=== PATIENT | male | born 1960 | race Hispanic/Latino ===

== ENCOUNTER 2023-05-11 08:53 | Outpatient (CLI) | payer OTHER, SELFPAY ==
--- NOTE | ~2023-05-11 | CT_ITS ---
EXAMINATION: CT lumbar spine wo con DATE: 05/11/2023 09:11 INDICATION: Lumbar radicular pain. TECHNIQUE: Computed tomography (CT) of the lumbar spine was performed without intravenous contrast. A utomated exposure control and iterative reconstruction technique were employed. The dose-length produ ct was 1389.31 mGy-cm. COMPARISON: Lumbar spine MRI 12/17/2017 FINDINGS: There is 3 mm anterolisthesis of L4 on L5. Vertebral body heights are normal. There is mild ly decreased disc height at L2-L3, L3-L4, and L4-L5 and severely decreased disc height at L5-S1. Ther e is an electrode in left S4 neural foramen. The following disc levels are specifically discussed: L1-L2: The disc does not extend beyond the endplate margin. There is severe bilateral facet joint ost eoarthritis. There is no neural foraminal stenosis. There is no central canal stenosis. L2-L3: The disc is bulging. There is moderate right and severe left facet joint osteoarthritis. There is mild right and moderate left neural foraminal stenosis. There is mild central canal stenosis. L3-L4: The disc is bulging. There is severe bilateral facet joint osteoarthritis. There is moderate b ilateral neural foraminal stenosis. There is mild central canal stenosis. L4-L5: The disc is bulging. There is severe bilateral facet joint osteoarthritis. There is moderate b ilateral neural foraminal stenosis. There is moderate central canal stenosis. L5-S1: The disc is bulging. There is severe bilateral facet joint osteoarthritis. There is moderate b ilateral neural foraminal stenosis. There is mild central canal stenosis. IMPRESSION: 1. Severe lumbar spondylosis, stable from 12/17/2017. Reviewed, dictated and finalized at location A.
== END 2023-05-11 08:54 | disposition home or self-care (01) ==
LOC: ANHIMG 08:55
PROVIDERS: PCP Family Medicine; Visit Provider Nurse Practitioner Family
DX: M54.16 Radiculopathy, lumbar region (principal); M43.06 Spondylolysis, lumbar region
CPT/HCPCS: 72131

== ENCOUNTER 2023-06-07 00:20 | Day surgery (SDC) | payer OTHER, SELFPAY ==
[2023-05-27 12:41] VITALS: BMI 36.8
[2023-06-07 06:48] VITALS: BP 138/79; PULSE 60; RESP 18; TEMP 36.3; O2SAT 96
[2023-06-07] MEDS: LACTATED RINGERS 1,000 ML 150 ML IV CONT (06:59)
--- NOTE | 2023-06-07 07:48 | WPDHPUPDATE1 ---
History and Physical Update Update Date/Time: 06/07/23 07:48 History and Physical has been reviewed, including an updated exam of the patient. There are NO changes in the patient's condition. Risks, benefits, and alternatives have been discussed and questions answered. Patient agrees to proceed with procedure.
[2023-06-07] MEDS: BENZOCAINE (*SP) 60 ML SPRAY CAN (HURRICAINE) 1 SPRAY MUCOUS MEM (07:55)
--- NOTE | 2023-06-07 07:55 | WPDANESEPPF ---
Anes - Initial Pre Proc Eval Procedure: Operation Date: 06/07/23 08:00 Proposed Procedures p Esophagogastroduodenoscopy & Screening Colonoscopy - Nick Chang MD s Possible [facility] Hemorrhoid Treatment - Nick Chang MD Date/Time: 06/07/23 07:55 Surgeon: Nick Chang MD Pre Op Diagnosis: Right Upper Quad Pain,Epigastric pain, Patient Data Age: 62 Gender: M Height: 1.8 m Weight: 118.3 kg Last Vital Signs Temp 97.3 F L 06/07/23 06:48 Pulse 60 06/07/23 06:48 Resp 18 06/07/23 06:48 BP 138/79 06/07/23 06:48 Pulse Ox 96 06/07/23 06:48 O2 Del Method Room Air 06/07/23 06:48 Allergies Allergy/AdvReac Type Severity Reaction Status Date / Time No Known Allergies Allergy Verified 06/07/23 06:38 Home Medications Medication Instructions Recorded Confirmed Type aspirin 81 mg tablet,delayed 81 mg PO DAILY 12/09/19 05/27/23 History release (Adult Low Dose Aspirin) cetirizine 10 mg tablet (Zyrtec) 10 mg PO DAILY #90 tabs 11/05/22 05/27/23 Rx ergocalciferol (vitamin D2) 1,250 1,250 mcg PO WEEKLY #12 caps 11/05/22 05/27/23 Rx mcg (50,000 unit) capsule lisinopril 10 mg tablet 10 mg PO DAILY #90 tabs 11/05/22 05/27/23 Rx metoprolol tartrate 25 mg tablet 25 mg PO BID #180 tabs 11/05/22 06/07/23 Rx montelukast 10 mg tablet 10 mg PO DAILY #90 tabs 11/05/22 05/27/23 Rx (Singulair) rosuvastatin 20 mg tablet 20 mg PO DAILY #90 tabs 11/05/22 05/27/23 Rx sildenafil (pulm.hypertension) 20 40 mg PO .COMPLEX #180 tabs 11/05/22 05/27/23 Rx mg tablet tamsulosin 0.4 mg capsule 0.4 mg PO DAILY #90 caps 11/05/22 05/27/23 Rx diclofenac sodium 1 % topical gel 4 g topical QID #100 grams 01/03/23 05/27/23 Rx citalopram 20 mg tablet 20 mg PO DAILY 03/17/23 05/27/23 History tramadol 50 mg tablet 50 mg PO Q6H PRN pain #30 tabs 04/05/23 05/27/23 Rx terbinafine HCl 250 mg tablet 250 mg PO DAILY #30 tabs 04/08/23 05/27/23 Rx omeprazole 20 mg capsule,delayed 20 mg PO BID #60 caps 05/18/23 05/27/23 Rx release sucralfate 1 gram tablet (Carafate) 1 g PO BID 05/18/23 05/27/23 History Patient hx anesthesia problems: none Family hx anesthesia problems: none Results Review: All pre-operative results and documents have been reviewed as part of the pre-operative evaluation. 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 Degenerative arthritis of knee Encounter for screening colonoscopy Epigastric abdominal pain Erectile dysfunction Essential hypertension Fecal incontinence Hyperlipidemia, unspecified Internal hemorrhoid LUQ pain Obesity (BMI 30-39.9) Prediabetes Surgical History Surgical History S/P implantation of urinary electronic stimulator device Family History Family History Other Family history of Alzheimer's disease Family history of alcoholism Family history of arthritis Family history of kidney disease Family history of malignant neoplasm of breast in first degree relative Social History Social History Smoking status: Never smoker Second hand tobacco smoke exposure: No Alcohol intake: current Alcohol use details: socially Substance use: never Substance use type: does not use Lack of Transportation: No Lack of Food: Never True Current Housing: I Have Housing Concerned About Future Housing: No Difficulty Paying Gas/Electric Bills: No Difficulty Paying for Meds: No Currently Unemployed: No Education: Associate Degree Difficulty w/ Childcare or Family Care: No Living arrangements: with family Occupation/Education: retired Gender identity (if verbalized by the pat
--- NOTE | 2023-06-07 08:15 | SUR.OPER ---
EGD START 075, END 075 COLONOSCOPY START 802, END 811 IRC START 811, END 812
[2023-06-07 08:17] VITALS: BP 94/61; PULSE 59; RESP 21; O2SAT 94
--- NOTE | 2023-06-07 08:17 | W.PM.PROC2 ---
Procedure Note - Detailed Date of Procedure 06/07/23 Pre-op Diagnosis hemorrhoids Post-op Diagnosis Same Procedure Performed IRC of internal hemorrhoids Surgeon Nick Chang MD Anesthesia MAC (also had colonoscopy) Findings grade ii internal hemorrhoids Description of Procedure used anoscopy, found grade II internal hemorrhoids, no fissure, no lesions. Then advanced IRC probe and hemorrhoids treated for 1.5 seconds x6
[2023-06-07 08:27] VITALS: BP 107/68; PULSE 61; RESP 15; O2SAT 91
[2023-06-07 08:37] VITALS: BP 104/63; PULSE 57; RESP 17; O2SAT 92
== END 2023-06-07 08:42 | disposition home or self-care (01) ==
PROVIDERS: PCP Family Medicine; Visit Provider Internal Medicine Gastroenterology
PROC: 0DJ08ZZ Inspection of Upper Intestinal Tract, Via Natural or Artificial Opening Endoscopic (ICD-10-PCS; CPT 43235; principal; 2023-06-07 08:00)
PROC: (CPT 46930; 2023-06-07 08:00)
DX: Z12.11 Encounter for screening for malignant neoplasm of colon (principal); K64.8 Other hemorrhoids; K57.30 Diverticulosis of large intestine without perforation or abscess without bleeding; K29.70 Gastritis, unspecified, without bleeding; I25.10 Atherosclerotic heart disease of native coronary artery without angina pectoris; I10 Essential (primary) hypertension; E78.5 Hyperlipidemia, unspecified; F41.9 Anxiety disorder, unspecified; E66.9 Obesity, unspecified; Z68.36 Body mass index [BMI] 36.0-36.9, adult; Z79.82 Long term (current) use of aspirin
CPT/HCPCS: 46930; 45378; 43239; 88305; J2704; J7120

== ENCOUNTER 2024-12-21 06:48 | Outpatient (CLI) | payer MEDICARE, OTHER, SELFPAY ==
--- NOTE | 2024-12-14 08:12 | PC.NURSE ---
Pre Radiology instructions Report to the outpatient onesimo taylor on date 12/21/24 at time _7 am for procedure Time: _9 am___ YOU MAY BE MONITORED AT HOSPITAL FOR UP TO 4 HOURS AFTER YOUR PROCEDURE. A visitor will be allowed to accompany the patient into the hospital. You and your visitor will be asked to self-screen and do not enter if you have any COVID symptoms. A mask is OPTIONAL within the hospital. Patients are to have no food or drink 6 hours prior to procedure time Driving will be restricted after the procedure, you must have a person to drive you home. Labs will be drawn in preop area and once reviewed, you will be taken to radiology area for procedure. When the procedure is completed, you will be taken to outpatient where you will be monitored for several hours. You may have one visitor in this area. Other than holding anti-coagulants, patient may take other medication(s) as scheduled. Prior to your appointment date patients are instructed to hold anti-coagulants after discussing with ordering provider to stop. If unable to discontinue anti-coagulants please notify radiologist. ? No aspirin or warfarin (Coumadin) for 7 days prior to the procedure. ? No clopidogrel (Plavix), ticagrelor (Brilinta), prasugrel (Effient) or dabigatran (Pradaxa) for 5 days prior to the procedure. ? No rivaroxaban (Xarelto), apixaban (Eliquis), dipyridamole (Aggrenox or Persantine) or cilostazol (Pletal) for 2 days prior to the procedure. Medications to discontinue per physician: __ASPIRIN 7 DAYS Date to take last dose: __12/13/24 Please leave all valuables, including medications, at home the day of procedure. The hospital will not accept responsibility for valuables. Wear comfortable, loose fitting clothing.? Follow any additional instructions given to you from ordering provider. Telephone instructions given to __PATIENT and asked if any additional questions and then verbalized understanding. Patient advised to call scheduling provider office or registration scheduling [phone] if any additional questions.
[2024-12-14 08:27] VITALS: BMI 34.8
[2024-12-21] VITALS (9 sets, daily range): BP systolic 123–153; BP diastolic 80–93; PULSE 60–75; RESP 16–20; TEMP 36.5; O2SAT 97–100
--- NOTE | ~2024-12-21 | XR_ITS ---
EXAMINATION: 1. CT lumbar spine w con 2. XR myelogram spine lumbosacral DATE: 12/21/2024 10:23 INDICATION: Lumbar radiculopathy. TECHNIQUE: The procedure including the risks, benefits, and alternatives was discussed with the patie nt. Risks discussed included spinal headache, bleeding, and infection. The patient understood the ris ks and agreed to proceed. A timeout was performed to verify the patient's name, date of , and procedure to be performed. The skin overlying the L2-L3 level was prepped and draped in usual steri le fashion. Subcutaneous 1% lidocaine was used for local anesthesia. A 22 gauge spinal needle was a dvanced under fluoroscopic guidance. 17 mL Omnipaque 180 was injected into the thecal sac. The needle was removed and the entry site was cleaned and dressed. There were no immediate complications. Fluo roscopy exposure time was 0.4 minutes. The total number of images was 9. Computed tomography (CT) of the lumbar spine was performed without intravenous contrast. Automated exposure control and iterative reconstruction technique were employed. The dose-length product was 1189.56 mGy-cm. COMPARISON: CT lumbar spine 05/11/23, MRI 12/17/17 FINDINGS: LUMBAR MYELOGRAM: There is a needle in the thecal sac at L2-L3. There is a lack of contrast inferior to L4-L5 despite elevation of the patient's head. Further details will be given on the post myelogram CT. POST-MYELOGRAM LUMBAR SPINE CT: There is 3 mm anterolisthesis of L4 on L5. Vertebral body heights are normal. There is mildly decreased disc height at L2-L3, moderately decreased disc height at L3-L4 an d L4-L5, and severely decreased disc height at L5-S1. The conus medullaris is at L1. There is an elec trode in the left S4 neural foramen. The following disc levels are specifically discussed: L1-L2: The disc does not extend beyond the endplate margin. There is severe bilateral facet joint ost eoarthritis. There is no neural foraminal stenosis. There is no central canal stenosis. L2-L3: The disc is bulging. There is moderate right and severe left facet joint osteoarthritis. There is mild bilateral neural foraminal stenosis. There is no central canal stenosis. L3-L4: The disc is bulging. There is severe bilateral facet joint osteoarthritis. There is moderate b ilateral neural foraminal stenosis. There is mild central canal stenosis. L4-L5: The disc is bulging. There is severe bilateral facet joint osteoarthritis. There is hypertroph y of the ligamentum flavum. There is moderate bilateral neural foraminal stenosis. There is severe ce ntral canal stenosis. L5-S1: The disc is bulging. There is severe bilateral facet joint osteoarthritis. There is moderate b ilateral neural foraminal stenosis. There is mild central canal stenosis. IMPRESSION: 1. Severe lumbar spondylosis. Reviewed, dictated and finalized at location A. CATION RECONCILIATION TECHNICIAN IMPRESSION: 1. Severe lumbar spondylosis.
--- OUTSIDE RECORDS SUMMARY | 2024-12-21 06:51 | XMS_ITS | Clinical Summary ---
Author Organization [facility] Address [address] [place] [address] Care Team Providers Care Saw Superintendent Name Role Phone Unavailable Primary Care Provider Unavailabl e Social History Tobacco Use Types Packs/Day Years Used Date Smoking Tobacco: Never Assessed Sex and Gender Information Value Date Recorded Sex Assigned at Not on file Legal Sex Male 10:42 AM [employer] Gender Identity Not on file Sexual Orientation Not on file Plan of Treatment Health Maintenance Due Date Last Done Comments COLORECTAL SCREENING 2004 Colorectal Cancer Screening 2004 FIT-DNA Q 3 years 2004 FIT/FOBT Q 1 year 2004 Flex Sig/CT Colonography Q 5 years 2004 PNEUMOCOCCAL VACCINE 65+ YEA RS (1 of 1 - PCV) 2009 RSV VACCINE (60+ or ) (1 - Risk 60-74 years 1-dose series) 2019 DTAP/TDAP/TD VACCINES (2 - T d or Tdap) 08/08/2020 08/08/2010 INFLUENZA VACCINE (#1) 2024 0, 10/07/2018, 09/11/2017, Additional history exists ZOSTER VACCINE Completed 09/29/2020, 07/26/2020 Insurance [employer] [address] [place] [address]
--- OUTSIDE RECORDS SUMMARY | 2024-12-21 06:53 | XMS_ITS | Referral Summary ---
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 Advanced Medicine 12th [place] [address] [place] [phone] Adrien Roe MD Lumbar radiculopathy (Primary Dx); Chronic lumbar radiculopathy; Degenerative lumbar spinal stenosis 11/16/2024 8:45 AM ON AIR HOST - 11/16/2024 11:59 PM ON AIR HOST Hospital Encounter [facility] [address] [place] [address] Lumbar radiculopathy Discharge Disposition: Discharge to home or self care 11/16/2024 9:40 AM ON AIR HOST Office Visit [facility] Orthopaedic Surgery [address] [facility] Advanced [facility] 12th [place] [address] [place] [address] Adrien Roe MD Lumbar radiculopathy (Primary Dx); Chronic lumbar radiculopathy; Degenerative lumbar spinal stenosis; Lumbar spine pain 11/05/2024 Orders Only [facility] Orthopaedic Surgery [address] [facility] [address] [place] [phone] Kyaw Ames MD Chronic lumbar radiculopathy (Primary Dx); Degenerative lumbar spinal stenosis 11/02/2024 10:39 AM ON AIR HOST - 11/02/2024 11:59 PM ON AIR HOST Hospital Encounter [facility] [address] [place] [address] Chronic lumbar radiculopathy Discharge Disposition: Discharge to home or self care 10/29/2024 Orders Only [facility] Orthopaedic Surgery [address] [place] [address] 4 [address] [place] [address] Kyaw Ames MD Chronic lumbar radiculopathy (Primary Dx) 10/29/2024 9:30 AM ON AIR HOST Diagnostic [facility] Orthopaedic Surgery [address] [place] [address] [address] [place] [phone] Kyaw Ames MD Muscle atrophy of lower extremity; Neuropathy of right lower extremity; Lumbar radiculopathy 09/21/2024 Orders Only [facility] Orthopaedic Surgery [address] [place] [address] 4 [address] [place] [address] Kyaw Ames MD Muscle atrophy of lower extremity; Neuropathy of right lower extremity; Lumbar radiculopathy from Last 3 Months Allergies No known active allergies Medications citalopram (CeleXA) 20 mg tabletIndication s:Anxiety with Depression Take 1 tablet (20 mg total) by mouth daily with breakfast Active aspirin 81 mg tabletIndication s:primary prevention heart stent Take 1 tablet (81 mg total) by mouth every morning Active fluticasone propionate (FLONASE) 50 mcg/actuation nasal sprayIndications :Allergic Rhinitis Administer 1 spray into each nostril nightly Active nitroglycerin (NITROSTAT) 0.[address] 1 tablet (0.4 mg total) under the tongue every 5 (five) minutes as needed for chest pain As needed 25 tablet 11 0 Active lisinopriL (PRINIVIL,ZESTRI L) 5 mg tablet Take 1 tablet (5 mg total) by mouth daily 90 tablet 3 0 Active Additional Information Patient taking differently:5 mg oralEvery morning, Indications: hypertension, Reported on 09/12/2024 cetirizine (ZyrTEC) 10 mg tablet every morning 0 Active ergocalciferol (VITAMIN D) 50,000 unit capsule once a week On Wednesdays 1 Active montelukast (SINGULAIR) 10 mg tabletIndication s:Seasonal Allergic Rhinitis nightly 1 Active multivitamin capsuleIndicatio ns:Vitamin Deficiency Prevention Take 1 capsule by mouth every morning Active solifenacin (VESIcare) 10 mg tabletIndication s:Urge incontinence,Ove ractive bladder Take 1 tablet (10 mg total) by mouth daily 30 tablet 5 2 Active Additional Information Patient not taking.Reported on 10/19/2022 rosuvastatin (CRESTOR) 20 mg tablet TAKE 1 TABLET(20 MG) BY MOUTH EVERY NIGHT 90 tablet 2 Active sildenafiL, pulm.hypertensio n, (REVATIO) 20 mg tablet TAKE 2 TABLETS BY MOUTH 30 MINUTES BEFORE SEXUAL ACTIVITY 2 Active tamsulosin (FLOMAX) 0.4 mg extended release capsuleIndicatio ns:Bladder outlet obstruction TAKE 1 CAPSULE(0.4 MG) BY MOUTH EVERY NIGHT 90 capsule 2 Active trospium XR (SANCTURA XR) 60 mg capsule,extended release 24hrIndications: Bladder outlet obstruction Take 1 capsule (60 mg total) by mouth daily 90 capsule 1 3 Active Myrbetriq 25 mg tablet extended release 24 hrIndications:Ov eractive bladder TAKE 1 TABLET DAILY 30 tablet 11 4 Active gabapentin (NEURONTIN) 300 mg capsule 4 Active gabapentin (NEURONTIN) 100 mg capsule 4 Active terbinafine (LamiSIL) 250 mg tablet 4 Active diazePAM (VALIUM) 5 mg tabletIndication s:anxiety Take one tablet by mouth 30 minutes to 1 hour prior to procedure for anxiety 1 tablet 5 Active Active Problems Problem Noted Date Diagnosed Date Overactive bladder 08/22/2023 Hepatitis C antibody positive in blood 1 Assessment & Plan (06/12/2021 10:35 AM CDT): Proceed with usual pre treatment blood work. 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 Coronary artery disease invo lving picayune coronary artery of picayune heart without angina pectoris 09/21/[address] elevation myocardial infarction (S NELSON) 09/21/2018 Essential hypertension 09/21/2018 Dyslipidemia 09/21/2018 Presence of stent in coronary artery 09/21/2018 Osteoarthritis of cervical spine with myelopathy 06/13/2018 Overview (06/13/2018): Added automatically from request for surgery [id number] Immunizations Name Administration Dates Next Due Influenza, Quadrivalent, Denae l Culture-based MDCK, Preservative Free, Antibiotic Free, Intramuscular 07/26/2020 Influenza, Unspecified 08/25/2019 ZOSTER Recombinant 09/29/2020,07/26/2020 Social History Tobacco Use Types Packs/Day Years Used Date Smoking Tobacco: Never Cigarettes Smokeless Tobacco: Never Tobacco Cessation:Counseling Given: Not Answered Alcohol Use Standard Drinks/Week Comments Yes 0 (1 standard drink = 0.6 oz pur e alcohol) SOCIAL AUDIT-C Answer Date Recorded Q1: How often do you have a drink containing alc ohol? Monthly or less 08/28/2021 Q2: How many drinks containi ng alcohol do you have on a typical day when you are drinking? 1 or 2 08/28/2021 Q3: How often do you have si x or more drinks on one occasion? 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 Not on file Not on file Not on file Last Filed Vital Signs Vital Sign Reading Time Taken Comments Blood Pressure 125/75 11/14/2023 9:54 AM ON AIR HOST Pulse 90 11/14/2023 9:54 AM ON AIR HOST Temperature 36.4 C (97.5 F) 09/08/2021 12:55 PM CDT Respiratory Rate 14 09/08/2021 12:55 PM CDT Oxygen Saturation 96% 10/20/2023 9:01 AM ON AIR HOST Inhaled Oxygen Concentration - - Weight 117.9 kg (260 lb) 09/12/2024 8:20 AM ON AIR HOST Height 181.6 cm (5' 11.5 ) 09/12/2024 8:20 AM CS T Body Mass Index 35.76 09/12/2024 8:20 AM ON AIR HOST Plan of Treatment Not on file Medical Devices Implanted Type Area Ramp Jockey Device Identifier Shelf Expiration Date Model / Serial / Lot [employer] [id number] Augusto-C Vertebridge 17x5.2-8mm 7d Lordotic 14mm Taper Cage .71cc - [id number] - [id number] Implanted:Qty: 1 on 07/04/2018 by Evens Mckenna MD at [facility] Cage Bilateral: Spine Cervical [employer] 05/07/2021 [id number] / [id number] / [id number] Orthocon Inc Os-201 Hemasorb Spatula Wax 2gm Bone Sterile - [id number] Implanted:Qty: 1 on 07/04/2018 by Evens Mckenna MD at [facility] Bilateral: Spine Cervical Orth[employer] Inc 02/04/2021 OS-201 / / Ceraped[employer] Inc 700-025 I Factor Allograft Putty Syringe Graft 2.5cc Bone - [id number] Implanted:Qty: 1 on 07/04/2018 by Evens Mckenna MD at [facility] Spine Cervical [employer] Inc 04/06/2021 700-025 / / Shiv Spine [id number] Augusto-C 8-10mm 5.6mm Level 2 Lock Spine Long Plate Bone - [id number] - [id number] Implanted:Qty: 1 on 07/04/2018 by Evens Mckenna MD at [facility] Spine Cervical Shiv Spine 11/09/2020 [id number] / [id number] / Shiv Spine [id number] Augusto-C 8-10mm 5.6mm Level 2 Lock Spine Long Plate Bone - S0 - [id number] Implanted:Qty: 1 on 07/04/2018 by Evens Mckenna MD at [facility] Spine Cervical Shiv Spine 08/07/2019 [id number] / [id number] / [id number] Description:Not found in cat alog search Augusto-C Lorotic Implant Implanted:Qty: 1 on 07/04/2018 by Evens Mckenna MD at [facility] Spine Cervical Ldr Spine 07/08/2020 [id number] / [id number] / [id number] Description:Not found in cat alog search Stents-08/31/2018 Implanted: 8 (Quantity not on file) Heart Medtronic Neuro [id number] Interstim 28cm Quadripolar Lead Neurostimulator - [id number] Implanted:Qty: 1 on 08/29/2019 by Yohana Hammond MD at [facility] N/A: Sacrum Med[employer] Inc 05/20/2021 [id number] / / [id number] Medtronic Neuro 3058 Interstim Ii 2inx1.7in 4 Electrode [employer] Sacral Nerve - [id number] - [id number] Implanted:Qty: 1 on 09/12/2019 by Yohana Hammond MD at [facility] N/A: Back Med[employer] Inc 12/04/2020 [id number] / [id number] / Procedures Procedure Name Priority Date/Time Associated Diagnosis Comments XR SPINE LUMBAR 2 OR 3 VIEWS Schedule Routine, Read Routine (OP Routine) 11/16/2024 9:30 AM ON AIR HOST Lumbar radiculopathy CT LUMBAR SPINE WO CONTRAST Schedule Routine, Read Routine (OP Routine) 11/02/2024 10:53 AM ON AIR HOST Chronic lumbar radiculopathy EMG/NCV Routine 10/29/2024 9:00 AM ON AIR HOST Muscle atrophy of lower extremity Neuropathy of right lower extremity Lumbar radiculopathy HEPATITIS C GENOTYPE Routine 06/12/2021 10:49 AM CDT Viral hepatitis C carrier (CMS/HCC) (HCC) from Last 3 Months or Most Recently Relevant to Health Maintenance Results * XR Spine Lumbar 2 or 3 Views (11/16/2024 9:30 AM ON AIR HOST) Anatomical Region Laterality Modality Spine N/A Computed Radiogr aphy 11/16/2024 9:37 AM ON AIR HOST Impressions 11/16/2024 9:37 AM ON AIR HOST Unchanged moderate lower lumbar degenerative disc changes and facet arthropathy. Electronically signed by: Brandon Rolle D.O. Narrative 11/16/2024 9:37 AM ON AIR HOST EXAMINATION: XR SPINE LUMBAR 2 OR 3 VIEWS HISTORY: back pain COMPARISON: Radiographs 09/12/2024, CT 11/02/2024 FINDINGS: Unchanged grade 1 L4 and L5 anterolisthesis. Unchanged 4 mm L2 on L3 retrolisthesis. No dynamic instability. Normal vertebral body heights. Moderate degenerative disc changes in the lower lumbar spine, worst at L4-S1. Moderate lower lumbar facet arthropathy. Minimal vascular calcifications. Procedure Note Brandon Rolle, DO - 11/16/2024 EXAMINATION: XR SPINE LUMBAR 2 OR 3 VIEWS HISTORY: back pain COMPARISON: Radiographs 09/12/2024, CT 11/02/2024 FINDINGS: Unchanged grade 1 L4 and L5 anterolisthesis. Unchanged 4 mm L2 on L3 retrolisthesis. No dynamic instability. Normal vertebral body heights. Moderate degenerative disc changes in the lower lumbar spine, worst at L4-S1. Moderate lower lumbar facet arthropathy. Minimal vascular calcifications. IMPRESSION: Unchanged moderate lower lumbar degenerative disc changes and facet arthropathy. Electronically signed by: Brandon Rolle D.O. us Adrien Roe MD IMG XR PROCEDURES Final Result * CT lumbar spine without contrast (11/02/2024 10:53 AM ON AIR HOST) Anatomical Region Laterality Modality Spine N/A Computed Tomogra phy 11/02/2024 11:1 0 AM ON AIR HOST Impressions 11/02/2024 11:18 AM ON AIR HOST Advanced multilevel degenerative disc and joint disease most pronounced in the lower lumbar spine as detailed above. Dictated by: Elizabeth Larkin MD The radiology attending physician has personally reviewed this study, and had reviewed and/or edited this written report and agrees with it. Electronically signed by: Shon lElison M.D. Narrative 11/02/2024 11:18 AM ON AIR HOST EXAMINATION: CT of the lumbar spine without contrast HISTORY: Chronic lumbar radiculopathy TECHNIQUE: CT of the lumbar spine was performed according to the standard protocol without intravenous contrast. COMPARISON: none FINDINGS: Minimal anterolisthesis of L4 on L5. There is no acute fracture. The vertebral bodies are normal in height without compression fractures. Schmorl's node is noted within the inferior endplate of L4 and superior endplate of L5. Mild multilevel disc desiccation with vacuum disc phenomenon at L4-L5 and L5-S1. There is no soft tissue abnormality. Calcified atherosclerotic disease is noted within the imaged abdominal aorta and pelvic vasculature. L1-L2: Mild diffuse disc bulge. There is mild bilateral facet arthropathy. There is no neuroforaminal stenosis. There is no spinal canal stenosis. L2-L3: Diffuse disc bulge. Posterior ligamentum flavum hypertrophy. There is moderate bilateral facet arthropathy. There is no neuroforaminal stenosis. There is mild spinal canal stenosis. L3-L4: Posterior disc osteophyte complex with diffuse disc bulge and posterior ligamentum flavum hypertrophy. There is moderate bilateral, greater on right than left facet arthropathy. There is moderate bilateral neuroforaminal stenosis. There is moderate spinal canal stenosis. L4-L5: Posterior disc osteophyte complex with diffuse disc bulge and ligamentum flavum hypertrophy and calcification. There is severe bilateral facet arthropathy. There is moderate bilateral neuroforaminal stenosis. There is severe spinal canal stenosis. L5-S1: Posterior disc osteophyte complex asymmetric to the left. There is severe right moderate left facet arthropathy. There is severe bilateral neuroforaminal stenosis. There is moderate spinal canal stenosis and left lateral recess stenosis. Procedure Note Shon Ellison MD - 11/02/2024 EXAMINATION: CT of the lumbar spine without contrast HISTORY: Chronic lumbar radiculopathy TECHNIQUE: CT of the lumbar spine was performed according to the standard protocol without intravenous contrast. COMPARISON: none FINDINGS: Minimal anterolisthesis of L4 on L5. There is no acute fracture. The vertebral bodies are normal in height without compression fractures. Schmorl's node is noted within the inferior endplate of L4 and superior endplate of L5. Mild multilevel disc desiccation with vacuum disc phenomenon at L4-L5 and L5-S1. There is no soft tissue abnormality. Calcified atherosclerotic disease is noted within the imaged abdominal aorta and pelvic vasculature. L1-L2: Mild diffuse disc bulge. There is mild bilateral facet arthropathy. There is no neuroforaminal stenosis. There is no spinal canal stenosis. L2-L3: Diffuse disc bulge. Posterior ligamentum flavum hypertrophy. There is moderate bilateral facet arthropathy. There is no neuroforaminal stenosis. There is mild spinal canal stenosis. L3-L4: Posterior disc osteophyte complex with diffuse disc bulge and posterior ligamentum flavum hypertrophy. There is moderate bilateral, greater on right than left facet arthropathy. There is moderate bilateral neuroforaminal stenosis. There is moderate spinal canal stenosis. L4-L5: Posterior disc osteophyte complex with diffuse disc bulge and ligamentum flavum hypertrophy and calcification. There is severe bilateral facet arthropathy. There is moderate bilateral neuroforaminal stenosis. There is severe spinal canal stenosis. L5-S1: Posterior disc osteophyte complex asymmetric to the left. There is severe right moderate left facet arthropathy. There is severe bilateral neuroforaminal stenosis. There is moderate spinal canal stenosis and left lateral recess stenosis. IMPRESSION: Advanced multilevel degenerative disc and joint disease most pronounced in the lower lumbar spine as detailed above. Dictated by: Elizabeth Larkin MD The radiology attending physician has personally reviewed this study, and had reviewed and/or edited this written report and agrees with it. Electronically signed by: Shon Ellison M.D. Kyaw Ames MD IMG CT PROCEDURES Final Re sult * EMG/NCV - (10/29/2024 9:00 AM ON AIR HOST) Anatomical Region Laterality Modality Other Kyaw Ames MD NEUROLOGY ORDERABLES Final Result * Hepatitis C genotype (06/12/2021 10:49 AM CDT) HCV genotype Undetected Undetected CAROLINE Jacobson ARJUN (CAROL) Comment: Assay failed to detect HCV RNA. This assay is not intended for HCV RNA detection purposes. ADDITIONAL INFORMATION This test was performed using the [employer] RealTime HCV Genotype II assay ([employer] [place], [place]). Test Performed by: [facility] [address] [place] [address] Sandfill Operator: Jas Wang M.D. Ph.D.; CLIA# [id number] Blood specimen (specimen) 06/12/2021 10:49 AM CDT 06/12/2021 1:27 PM CDT Amrik Aguilar MD LAB MICROBIOLOGY - GENERAL OR DERABLES Final Result AJIT DÍAZ (CAROL) 1 [facility] [place] [address] from Last 3 Months or Most Recently Relevant to Health Maintenance Insurance MEDICARE [employer] [facility] MEDICARE [facility] Advance Directives For more information, please contact: [phone] * Full Code (Latest Code Status on File) Date Activated Date Inactivated Comments 09/12/2019 10:50 AM 09/13/2019 3:03 PM * Full Code Date Activated Date Inactivated Comments 07/04/2018 11:29 AM 07/05/2018 2:21 PM 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
--- OUTSIDE RECORDS SUMMARY | 2024-12-21 06:53 | XMS_ITS | Continuity of Care Document ---
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 It does not include entries that were removed or entered in error. Problem Status Onset Date Problem Type Date of Resolution Comme nts Source visit for: services physical Inactive 02/05/2015 Condition DoD Medications Combined list of outpatient medications from Department of Defense and Veterans Affairs facilities.Medications provided include 1) outpatient medications from the last 15 months, and 2) patient-reported medications. Medication Details Route Status Patient Instructions Prescription Expires Prescription Number Last Dispense Date Ordering Provider Order Date Order Qty Source CETIRIZINE HCL (cetirizine HCl), 10 MG, TABLET, ORAL, MAJOR PHARMACEU, 90 ea. BOTTLE Active [id number] 4 2023 90 Pharmac y Data Transac tion Service Facilit y CITALOPRAM HBR (CITALOPRAM HYDROBROMID E), 20MG, TABLET, ORAL, TORRENT PHARMAC, 100 ea. BOTTLE Active [id number] 4 2023 90 Pharmac y Data Transac tion Service Facilit y GABAPENTIN (gabapentin ), 100 MG, CAPSULE, ORAL, [employer] 1000 ea. BOTTLE Active [id number] 4 2023 90 Pharmac y Data Transac tion Service Facilit y GABAPENTIN (gabapentin ), 100 MG, CAPSULE, ORAL, XLCARE PHARMACE, 500 ea. BOTTLE Active [id number] 4 2023 90 Pharmac y Data Transac tion Service Facilit y GABAPENTIN (gabapentin ), 100 MG, CAPSULE, ORAL, XLCARE PHARMACE, 500 ea. BOTTLE Active [id number] 4 2023 90 Pharmac y Data Transac tion Service Facilit y GABAPENTIN (gabapentin ), 300 MG, CAPSULE, ORAL, [employer] 1000 ea. BOTTLE Active [id number] 4 2023 180 Pharmac y Data Transac tion Service Facilit y GABAPENTIN (gabapentin ), 300 MG, CAPSULE, ORAL, XLCARE PHARMACE, 270 ea. BOTTLE Active [id number] 4 2023 180 Pharmac y Data Transac tion Service Facilit y GABAPENTIN (gabapentin ), 300 MG, CAPSULE, ORAL, XLCARE PHARMACE, 270 ea. BOTTLE Active [id number] 4 2023 180 Pharmac y Data Transac tion Service Facilit y LISINOPRIL (lisinopril ), 10 MG, TABLET, ORAL, EXELAN PHARMACE, 1000 ea. BOTTLE Active [id number] 4 2023 90 Pharmac y Data Transac tion Service Facilit y LISINOPRIL (lisinopril ), 10 MG, TABLET, ORAL, EXELAN PHARMACE, 1000 ea. BOTTLE Active [id number] 4 2023 90 Pharmac y Data Transac tion Service Facilit y MONTELUKAST SODIUM (montelukas t sodium), 10 MG, TABLET, ORAL, XLCARE PHARMACE, 90 ea. BOTTLE Active [id number] 4 2023 90 Pharmac y Data Transac tion Service Facilit y MONTELUKAST SODIUM (montelukas t sodium), 10 MG, TABLET, ORAL, XLCARE PHARMACE, 90 ea. BOTTLE Active [id number] 4 2023 90 Pharmac y Data Transac tion Service Facilit y MYRBETRIQ (MIRABEGRON ), 25 MG, TAB ER 24H, ORAL, ASTELLAS PHARMA, 30 ea. BOTTLE Active [id number] 2023 90 Pharmac y Data Transac tion Service Facilit y MYRBETRIQ (MIRABEGRON ), 25 MG, TAB ER 24H, ORAL, ASTELLAS PHARMA, 30 ea. BOTTLE Active [id number] 2023 30 Pharmac y Data Transac tion Service Facilit y MYRBETRIQ (MIRABEGRON ), 25 MG, TAB ER 24H, ORAL, ASTELLAS PHARMA, 30 ea. BOTTLE Active [id number] 2023 30 Pharmac y Data Transac tion Service Facilit y MYRBETRIQ (MIRABEGRON ), 25 MG, TAB ER 24H, ORAL, ASTELLAS PHARMA, 30 ea. BOTTLE Active [id number] 4 2023 30 Pharmac y Data Transac tion Service Facilit y PAXLOVID (nirmatrelv ir/ritonavi r), 300-100 MG, TAB DS PK, ORAL, PFIZER LABS., 30 ea. BLIST PACK Active [id number] 4 2023 30 Pharmac y Data Transac tion Service Facilit y PAXLOVID (nirmatrelv ir/ritonavi r), 300-100 MG, TAB DS PK, ORAL, [facility]., 30 ea. BLIST PACK Cancele d 4 [id number] : 2023 0 Pharmac y Data Transac tion Service Facilit y REVATIO (SILDENAFIL CITRATE), 20MG, TABLET, ORAL, PFIZER PHARM, 90 ea. BOTTLE Active [id number] 2023 180 Pharmac y Data Transac tion Service Facilit y ROSUVASTATI N CALCIUM (rosuvastat in calcium), 20 MG, TABLET, ORAL, [facility], 90 ea. BOTTLE Active [id number] 2023 90 Pharmac y Data Transac tion Service Facilit y ROSUVASTATI N CALCIUM (rosuvastat in calcium), 20 MG, TABLET, ORAL, [facility] 90 ea. BOTTLE Active [id number] 2023 90 Pharmac y Data Transac tion Service Facilit y TAMSULOSIN HCL (TAMSULOSIN HCL), 0.4 MG, CAP.SR 24H, ORAL, ZYDUS PHARMACEU, 1000 ea. BOTTLE Active [id number] 2023 90 Pharmac y Data Transac tion Service Facilit y TAMSULOSIN HCL (TAMSULOSIN HCL), 0.4 MG, CAP.SR 24H, ORAL, ZYDUS PHARMACEU, 1000 ea. BOTTLE Active [id number] 4 2023 90 Pharmac y Data Transac tion Service Facilit y TERBINAFINE HCL (TERBINAFIN E HCL), 250MG, TABLET, ORAL, AUROBINDO PHARM, 30 ea. BOTTLE Active [id number] 4 2023 90 Pharmac y Data Transac tion Service Facilit y VITAMIN D2 (ergocalcif rosario (vitamin D2)), 1250 MCG, CAPSULE, ORAL, AVKARE, 100 ea. BOTTLE Active [id number] 2023 12 Pharmac y Data Transac tion Service Facilit y Immunizations Combined list of available immunizations from the Department of Defense and Veterans Affairs facilities. Immunization Series Date Given Administered By Site Reaction Lot Number CVX Code Drug Display Department Manager Status Comments Source influenza, injectable, quadrivalent, preservative free 2020 GIACALONE, () Not Given influenza , injectabl e, quadrival ent, preservat dharmesh free DoD zoster recombinant 2019 ALUL, () Not Given zoster recombina nt DoD Influenza, injectable, MDCK, preservative free, quadrivalent 2019 ALUL, () Not Given Influenza , injectabl e, MDCK, preservat dharmesh free, quadrival ent DoD zoster recombinant 2019 ALUL, () Not Given zoster recombina nt DoD Influenza, injectable, quadrivalent, preservative free 21 2017 Unknown, Provider [id number] SmithKline (SKB) complet ed Influenza , injectabl e, quadrival ent, preservat dharmesh free DoD Influenza, injectable, Madin [place] Canine Kidney, preservative free, quadrivalent 20 2016 Unknown, Provider [id number] Seqirus (SEQ) complet ed Influenza , injectabl e, Madin Ethel Canine Kidney, preservat dharmesh free, quadrival ent DoD Influenza, injectable, quadrivalent, preservative free 1 2015 Unknown, Provider [id number] SmithKline (SKB) complet ed Influenza , injectabl e, quadrival ent, preservat dharmesh free DoD Influenza, seasonal, injectable, preservative free 18 2014 Unknown, Provider [id number] [facility] Energy [employer]iv[employer] Tr[employer]. (CSL) complet ed Influenza , seasonal, injectabl e, preservat dharmesh free DoD anthrax vaccine 5 2013 [id number] [facility] ([facility]) complet ed anthrax vaccine DoD measles, mumps and rubella virus vaccine 2 2013 [id number] Merck (MSD) complet ed measles, mumps and rubella virus vaccine DoD typhoid Vi capsular polysaccharid e vaccine 7 2013 [id number] Sanofi Pasteur ([facility]) complet ed typhoid Vi capsular polysacch aride vaccine DoD Influenza, seasonal, injectable, preservative free 17 2013 [id number] 140 Novartis Pharmaceutica l Yosi. (NOV) complet ed Influenza , seasonal, injectabl e, preservat dharmesh free DoD Influenza, injectable, Madin Ethel Canine Kidney, preservative free 16 2012 [id number] 153 Novartis Pharmaceutica l Yosi. (NOV) complet ed Influenza , injectabl e, Madin [place] Canine Kidney, preservat dharmesh free DoD Influenza, seasonal, injectable, preservative free 15 2011 [id number] 140 Sanofi Pasteur ([facility]) complet ed Influenza , seasonal, injectabl e, preservat dharmesh free DoD hepatitis B vaccine, adult dosage 3 2010 [id number] 43 Hit [employer] Music[employer] ([facility]) complet ed hepatitis B vaccine, adult dosage DoD Influenza, seasonal, injectable 14 2010 [id number] 141 iBuyitBetter, Inc. ([facility]) complet ed Influenza , seasonal, injectabl e DoD hepatitis B vaccine, adult dosage 2 2010 [id number] 43 Peanut Labs ([facility]) complet ed hepatitis B vaccine, adult dosage DoD hepatitis B vaccine, adult dosage 1 2010 [id number] 43 [employer] ([facility]) complet ed hepatitis B vaccine, adult dosage DoD influenza virus vaccine, split virus (incl. 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 ([facility]) complet ed influenza virus vaccine, split virus (incl. purified surface antigen)- retired CODE DoD tetanus toxoid, reduced diphtheria toxoid, and acellular pertu is vaccine, adsorbed 1 2009 [id number] 115 Sanofi Pasteur ([facility]) complet ed tetanus toxoid, reduced diphtheri a toxoid, and acellular pertussis vaccine, adsorbed DoD Novel influenza-H1N 1-09, preservative- free, injectable 1 2009 [id number] 126 Sanofi Pasteur ([facility]) complet ed Novel influenza -R6T0-79, preservat dharmesh-free, injectabl e DoD influenza virus vaccine, split virus (incl. purified surface antigen)-reti red CODE 1 2008 [id number] 15 [facility] ([facility]) complet ed influenza virus vaccine, split virus (incl. purified surface antigen)- retired CODE DoD influenza virus vaccine, live, attenuated, for intranasal use 1 2007 [id number] 111 Minube. (MED) complet ed influenza virus vaccine, live, attenuate d, for intranasa l use DoD typhoid Vi capsular polysaccharid e vaccine 1 2007 [id number] Sanofi Pasteur ([facility]) complet ed typhoid Vi capsular polysacch aride vaccine DoD influenza virus vaccine, live, attenuated, for intranasal use 1 2006 [id number] 111 [employer]. (MED) complet ed influenza virus vaccine, live, attenuate d, for intranasa l use DoD influenza virus vaccine, split virus (incl. purified surface antigen)-reti red CODE 1 2006 [id number] 15 Sanofi Pasteur ([facility]) complet ed influenza virus vaccine, split virus (incl. purified surface antigen)- retired CODE DoD typhoid vaccine, parenteral, other than acetone-kille d, dried 1 2005 [id number] 41 Sanofi Pasteur ([facility]) complet ed typhoid vaccine, parentera l, other than acetone-k illed, dried DoD influenza virus vaccine, split virus (incl. purified surface antigen)-reti red CODE 1 2005 [id number] 15 Sanofi Pasteur ([facility]) complet ed influenza virus vaccine, split virus (incl. purified surface antigen)- retired CODE DoD meningococcal polysaccharid e vaccine (MPSV4) 0 2004 [id number] 32 Sanofi Pasteur ([facility]) complet ed meningoco ccal polysacch aride vaccine (MPSV4) DoD anthrax vaccine 5 2003 [id number] 24 [facility]) complet ed anthrax vaccine DoD typhoid vaccine, parenteral, other than acetone-kille d, dried 0 2003 [id number] 41 Sanofi Pasteur ([facility]) complet ed typhoid vaccine, parentera l, other than acetone-k illed, dried [facility] influenza virus vaccine, whole virus 0 2002 [id number] 16 [employer] (PW) complet ed influenza virus vaccine, whole virus [facility] vaccinia (smallpox) vaccine 0 2002 75 () Not Given vaccinia (smallpox ) vaccine DoD anthrax vaccine 4 2002 [id number] 24 [facility] ([facility]) complet ed anthrax vaccine DoD anthrax vaccine 3 2002 [id number] 24 [facility] ([facility]) complet ed anthrax vaccine DoD anthrax vaccine 2 2001 [id number] 24 [facility] ([facility]) complet ed anthrax vaccine DoD anthrax vaccine 1 2001 [id number] 24 [facility] ([facility]) complet ed anthrax vaccine DoD influenza virus vaccine, whole virus 0 2001 [id number] 16 Sanofi Pasteur ([facility]) complet ed influenza virus vaccine, whole virus [facility] tuberculin skin test; purified protein derivative solution, intradermal 1 2001 Unknown, Provider [id number] 96 [facility] ([facility]) complet tuberculi n skin test; purified protein derivativ e solution, intraderm al [facility] yellow fever vaccine 0 2001 [id number] 37 Sanofi Pasteur ([facility]) complet ed yellow fever vaccine [facility] influenza virus vaccine, whole virus 0 2000 [id number] 16 Sanofi Pasteur ([facility]) complet ed influenza virus vaccine, whole virus [facility] typhoid vaccine, parenteral, other than acetone-kille d, dried 0 2000 [id number] 41 Sanofi Pasteur ([facility]) complet ed typhoid vaccine, parentera l, other than acetone-k illed, dried DoD tuberculin skin test; purified protein derivative solution, intradermal 1 2000 Unknown, Provider [id number] [facility] ([facility]) complet ed tuberculi n skin test; purified protein derivativ e solution, intraderm al [facility] influenza virus vaccine, whole virus 0 1999 [id number] 16 Jimmy (GENNA) complet ed influenza virus vaccine, whole virus [facility] tetanus and diphtheria toxoids, adsorbed, preservative free, for adult use (2 Lf of tetanus toxoid and 2 Lf of diphtheria toxoid) 0 1999 [id number] 09 Sanofi Pasteur ([facility]) complet ed tetanus and diphtheri a toxoids, adsorbed, preservat dharmesh free, for adult use (2 Lf of tetanus toxoid and 2 Lf of diphtheri a toxoid) DoD tuberculin skin test; purified protein derivative solution, intradermal 1 1999 Unknown, Provider [id number] 96 Sanofi Pasteur ([facility]) complet ed tuberculi n skin test; purified protein derivativ e solution, intraderm al [facility] influenza virus vaccine, whole virus 0 1998 [id number] 16 [facility] (CON) complet ed influenza virus vaccine, whole virus DoD typhoid vaccine, parenteral, other than acetone-kille d, dried 0 1998 [id number] 41 [facility] (CON) complet ed typhoid vaccine, parentera l, other than acetone-k illed, dried DoD hepatitis A vaccine, adult dosage 2 1998 [id number] 52 Merck (MSD) complet ed hepatitis A vaccine, adult dosage DoD hepatitis A vaccine, adult dosage 1 1998 [id number] 52 Merck (MSD) complet ed hepatitis A vaccine, adult dosage DoD influenza virus vaccine, whole virus 0 [id number] 16 [facility] (CON) complet ed influenza virus vaccine, whole virus DoD influenza virus vaccine, whole virus 0 1995 16 () complet ed influenza virus vaccine, whole virus DoD typhoid vaccine, parenteral, acetone-kille d, dried ([place] ) 2 1995 53 () complet ed typhoid vaccine, parentera l, acetone-k illed, dried ([place] ) DoD yellow fever vaccine 0 1991 37 () complet ed yellow fever vaccine DoD tetanus and diphtheria toxoids, adsorbed, preservative free, for adult use (2 Lf of tetanus toxoid and 2 Lf of diphtheria toxoid) 0 1989 09 () complet ed tetanus and diphtheri a toxoids, adsorbed, preservat dharmesh free, for adult use (2 Lf of tetanus toxoid and 2 Lf of diphtheri a toxoid) [facility] trivalent poliovirus vaccine, live, oral 0 1979 02 () complet ed trivalent polioviru s vaccine, live, oral DoD cholera vaccine, unspecified formulation 0 1979 26 () complet ed cholera vaccine, unspecifi ed formulati on DoD measles, mumps and rubella virus vaccine 0 1978 03 () complet ed measles, mumps and rubella virus vaccine DoD Encounters Combined list of: 1) Encounters from Department of Veterans Affairs facilities going backup to the last 18 months, not all VA inpatient encounters are included; 2) Encounters from the Department of Defense facilities going backup to 280 months. Location Location Details Encounter Type Encounter Number Reason For Visit Attending Provider ADM Date DC Date Status Disposition Source Theater Facility OUTPATIENT [id number] Theater Provider 02/05 Released w/o Limitations Theater Facilit y [address] [place] [address] Rajesh Isiah [facility]) OUTPATIENT [id number] post deploym ent orders; right ankle, elbow injury [id number] PAUL UNDERWOOD 02/24 Released w/o Limitations [address] [place] [address])([facility] [place]) [address] [place] [address] Rajesh [facility])([facility] ) TELE CONSULT [id number] Notes Entered by: EMERY IVERSON 04 Aug 2015 1319 ------- ------- ------- ------- -- ANNUAL AUDIOGR AM SAYRA UNDERWOOD 08/[address] [place] [address] Rajesh [facility])([facility] ) [address] [place] [address])([facility]) OUTPATIENT [id number] Notes Entered by: MIKO FARFAN 16 Jun 2017 1151 ------- ------- ------- ------- -- Annual Audiogr am MIKO FARFAN 06/16 Released w/o Limitations [address] [place] [address])(O ldclini c) [address] [place] [address] Rajesh [facility])([facility]) OUTPATIENT [id number] Notes Entered by: Ivan ANDRADE 08 Sep 2017 1126 ------- ------- ------- ------- -- the knees and fit test JANICE ANDRADE 09/08 Released with Work/Duty Limitations [address] [place] [address])(O ldclini c) [address] [place] [address])([facility]) OUTPATIENT [id number] PHAQ II review PADMA NORTH 12/10 Released w/o Limitations [address] [place] [address])(O ldclini c) [address] [place] [address])([facility]) OUTPATIENT [id number] Notes Entered by: MIKO FARFAN 07 Jun 2018 1001 ------- ------- ------- ------- -- ANNUAL AUDIOGR AM MIKO FARFAN 06/07 Released w/o Limitations [address] [place] [address])(O ldclini c) [address] [place] [address])([facility]) TELE CONSULT [id number] Notes Entered by: CLEMENTE BUTLER 29 Aug 2018 1538 ------- ------- ------- ------- -- Review DANA Quinones 08/[address] [place] [address] ([facility]) [address] [place] [address])([facility]) OUTPATIENT [id number] BRIAN SILVERIO 09/10 Released w/o Limitations [address] [place] [address])([facility]) [address] [place] [address])([facility]) OUTPATIENT [id number] Notes Entered by: Micheal KESSLER 07 Oct 2018 0954 ------- ------- ------- ------- -- New medicat ions and RANCHO Muhammad 10/07 Released w/o Limitations [address] [place] [address] ([facility]) [address] [place] [address] [employer] [facility]) OUTPATIENT [id number] FOLLOW UP PADMA NORTH 01/06 Released w/o Limitations [address] [place] [address] Rajesh [facility] [address] [place] [address] Rajesh [facility]) OUTPATIENT [id number] Follow Up JANICE ANDRADE 02/10 Released w/o Limitations [address] [place] [address] Raj[facility]) [address] [place] [address] [facility]) TELE CONSULT [id number] Notes Entered by: ASHLEE MELENDEZ 29 Mar 2019 1352 ------- ------- ------- ------- -- Update SALMA MELENDEZ 03/29 Other Not Elsewhere Classified [address] [place] [address] Rajesh [facility]) [facility] Outpatient Encounter [id number] 06/04 [facility] Social History Combined list of available smoking, tobacco, and other social history from Department of Defense and Veterans Affairs facilities. Social History Type Response Date Comment Sour e This section is an empty social history section. DoD
--- OUTSIDE RECORDS SUMMARY | 2024-12-21 06:53 | XMS_ITS | Clinical Summary ---
Author Organization [facility] [address] Address [address] [place] [address] Care Team Providers Care Income Tax Consultant Name Role Phone Rebecca Joshua MD Primary Care Provider [phone] Rebecca Joshua MD Unavailable [phone] Allergies No known active allergies Medications citalopram [...] (05/09/2019): Added automatically from request for surgery [id number] Urinary frequency 05/09/2019 Overview (05/09/2019): Added automatically from request for surgery [id number] Urinary urgency 05/09/2019 Overview (05/09/2019): Added automatically from request for surgery [id number] Acute medial meniscus tear of left knee 01/10/20 19 Overview (01/09/2019): Added automatically from request for surgery [id number] 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 Coronary artery disease invo [place]ving [place] coronary artery of [place] heart without angina pectoris 09/21/[address] elevation myocardial infarction (S [place]) 09/21/2018 Essential hypertension 09/21/2018 Dyslipidemia 09/21/2018 Presence of stent in coronary artery 09/21/2018 Osteoarthritis of cervical spine with myelopathy 06/13/2018 Overview (06/13/2018): Added automatically from request for surgery [id number] Encounters Date Type Department Care Team Description 11/16/2024 9:40 AM TYPESETTER PERFORATOR OPERATOR Office Visit [facility] 12th [place] [address] [place] [address] Adrien Roe MD Lumbar radiculopathy (Primary Dx); Chronic lumbar radiculopathy; Degenerative lumbar spinal stenosis; Lumbar spine pain 11/16/2024 8:45 AM TYPESETTER PERFORATOR OPERATOR - 11/16/2024 11:59 PM TYPESETTER PERFORATOR OPERATOR Hospital Encounter [facility] [address] [place] [address] Lumbar radiculopathy Discharge Disposition: Discharge to home or self care 11/16/2024 Orders Only [facility] [address] [facility] 12th [place] [address] [place] [address] Adrien Roe MD Lumbar radiculopathy (Primary Dx); Chronic lumbar radiculopathy; Degenerative lumbar spinal stenosis 11/05/2024 Orders Only [facility] [address] [facility] Medical Office Building [address] [place] [address] Kyaw Ames MD Chronic lumbar radiculopathy (Primary Dx); Degenerative lumbar spinal stenosis 11/02/2024 10:39 AM TYPESETTER PERFORATOR OPERATOR - 11/02/2024 11:59 PM TYPESETTER PERFORATOR OPERATOR Hospital Encounter [facility] [address] [place] [address] Chronic lumbar radiculopathy Discharge Disposition: Discharge to home or self care 10/29/2024 9:30 AM TYPESETTER PERFORATOR OPERATOR Diagnostic [facility] Office [facility] [address] [place] [address] Kyaw Ames MD Muscle atrophy of lower extremity; Neuropathy of right lower extremity; Lumbar radiculopathy 10/29/2024 Orders Only [facility] [address] [place] [address] [address] [place] [address] Kyaw Ames MD Chronic lumbar radiculopathy (Primary Dx) 09/21/2024 Orders Only [facility] [address] [place] [address] 4 [address] [place] [address] Kyaw Ames MD Muscle atrophy of lower extremity; Neuropathy of right lower extremity; Lumbar radiculopathy from Last 3 Months Immunizations Name Administration Dates Next Due Influenza, Quadrivalent, Denae l Culture-based MDCK, Preservative Free, Antibiotic Free, Intramuscular 07/26/2020 Influenza, Unspecified 08/25/2019 ZOSTER Recombinant 09/29/2020,07/26/2020 Surgical History Surgery Date Site/Laterality Comments LIPOMA RESECTION 11/07/2006 - 11/06/2007 Right R flank/ abdominal area KIDNEY STONE SURGERY 11/07/2015 - 11/06/2016 ESWL CERVICAL FUSION 11/07/2007 - 11/06/2008 C5-6, C4-5 hardware placed. No limitation with up, down, or side to side X 2 SURGERIES COLONOSCOPY 11/07/2009 - 11/06/2010 FLUORO GUIDED ASPIRATION OR INJECTION LARGE JOINT BILATERAL 10/17/2018 Bilateral CARDIAC STENT PLACEMENT 08/07/2018 - 09/06/2018 x1 ANGIOPLASTY 08/07/2018 - 09/06/2018 2 vessels. 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 Hypertension well controlled with meds Myocardial infarction (HCC) 08/2018 STEM I- heart stent x1 placed and angioplasty x 2. Denies CP/SOB. Kidney stone 2016 had ESWL done Arthritis knees BPH (benign prostatic hyperplasia) Dyslipidemia on statin Family History Medical History Relation Name Comments Diabetes Brother Geoffrey Kidney disease Brother Geoffrey Hearing loss Father Tip Vision loss Father Tip Cancer Mother Stephanie Hypertension Mother Stephanie Anesthesia problems Neg Hx Relation Name Status Comments Brother Geoffrey Father Tip Mother Stephanie Social History Tobacco Use Types Packs/Day Years [...] on file Legal Sex Male 2:32 AM TYPESETTER PERFORATOR OPERATOR Gender Identity Male 09/15/2023 8:15 PM TYPESETTER PERFORATOR OPERATOR Sexual Orientation Straight 01/10/2019 4: 54 PM TYPESETTER PERFORATOR OPERATOR 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 Industry Job Start Date Job End Date 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 Not on file Not on file Not on file Obstetrics History Last Filed Vital Signs Vital Sign Reading Time Taken Comments Blood Pressure 125/75 11/14/2023 9:54 AM TYPESETTER PERFORATOR OPERATOR Pulse 90 11/14/2023 9:54 AM TYPESETTER PERFORATOR OPERATOR Temperature 36.4 C (97.5 F) 09/08/2021 12:55 PM CDT Respiratory Rate 14 09/08/2021 12:55 PM CDT Oxygen Saturation 96% 10/20/2023 9:01 AM TYPESETTER PERFORATOR OPERATOR Inhaled Oxygen Concentration - - Weight 117.9 kg (260 lb) 09/12/2024 8:20 AM TYPESETTER PERFORATOR OPERATOR Height 181.6 cm (5' 11.5 ) 09/12/2024 8:20 AM CS T Body Mass Index 35.76 09/12/2024 8:20 AM TYPESETTER PERFORATOR OPERATOR Plan of Treatment Health Maintenance Due Date Last Done Comments Colon Cancer Screening-Colonoscopy 1960 Depression Screening 1960 Prostate Cancer Screening-PSA 1960 DTaP/Tdap/Td Vaccine (2 - Td or Tdap) 08/08/2020 08/08/2010, 06/19/2000, 06/07/1990 Fall Risk Assessment 09/08/2022 09/08/2021 Covid-19 Vaccine (3 - 2023-2 5 season) 2024 03/02/2021, 02/09/2021 Pneumococcal vaccine 65+ (1 of 1 - PCV) 2024 Well Visit 65+ 2024 Zoster Vaccine Completed 09/29/2020, 07/26/2020 Hepatitis C Screening Completed 06/12/2021, 021 Influenza Vaccine Completed 09/10/2024, , 07/26/2020, Additional history exists Medical Devices Implanted Type Area Display Director Device Identifier Shelf Expiration Date Model / Serial / Lot Shiv [employer] [id number] Augusto-C Vertebridge 17x5.2-8mm 7d Lordotic 14mm Taper Cage .71cc - [id number] - [id number] Implanted:Qty: 1 on 07/04/2018 by Evens Mckenna MD at [facility] Cage Bilateral: Spine Cervical [employer] Inc 05/07/2021 [id number] / [id number] / [id number] Orthocon Inc Os-201 Hemasorb Spatula Wax 2gm Bone Sterile - [id number] Implanted:Qty: 1 on 07/04/2018 by Evens Mckenna MD at [facility] Bilateral: Spine Cervical Orthocon Inc 02/04/2021 OS-201 / / Cerapedics Inc 700-025 I Factor Allograft Putty Syringe Graft 2.5cc Bone - [id number] Implanted:Qty: 1 on 07/04/2018 by Evens Mckenna MD at [facility] Spine Cervical Ceraped[employer] Inc 04/06/2021 700-025 / / Shiv Spine [id number] Augusto-C 8-10mm 5.6mm Level 2 Lock Spine Long Plate Bone - [id number] - [id number] Implanted:Qty: 1 on 07/04/2018 by Evens Mckenna MD at [facility] Spine Cervical Shiv Spine 11/09/2020 [id number] / [id number] / Shiv Spine [id number] Augusto-C 8-10mm 5.6mm Level 2 Lock Spine Long Plate Bone - S0 - [id number] Implanted:Qty: 1 on 07/04/2018 by Evens Mckenna MD at [facility] Spine Cervical Shiv Spine 08/07/2019 [id number] / [id number] / [id number] Description:Not found in cat alog search Augusto-C Lorotic Implant Implanted:Qty: 1 on 07/04/2018 by Evens Mckenna MD at [facility] Spine Cervical Ldr Spine 07/08/2020 [id number] / [id number] / [id number] Description:Not found in cat alog search Stents-08/31/2018 Implanted: 8 (Quantity not on file) Heart Medtronic Neuro [id number] Interstim 28cm Quadripolar Lead Neurostimulator - [id number] Implanted:Qty: 1 on 08/29/2019 by Yohana Hammond MD at [facility] N/A: Sacrum Medtronic Inc 05/20/2021 [id number] / / [id number] Medtronic Neuro 3058 Interstim Ii 2inx1.7in 4 Electrode Customer Engagement Analyst Sacral Nerve - [id number] - [id number] Implanted:Qty: 1 on 09/12/2019 by Yohana Hammond MD at [facility] N/A: Back Medtronic Inc 12/04/2020 [id number] / [id number] / Procedures Procedure Name Priority Date/Time Associated Diagnosis Comments XR SPINE LUMBAR 2 OR 3 VIEWS Schedule Routine, Read Routine (OP Routine) 11/16/2024 9:30 AM TYPESETTER PERFORATOR OPERATOR Lumbar radiculopathy CT LUMBAR SPINE WO CONTRAST Schedule Routine, Read Routine (OP Routine) 11/02/2024 10:53 AM TYPESETTER PERFORATOR OPERATOR Chronic lumbar radiculopathy EMG/NCV Routine 10/29/2024 9:00 AM TYPESETTER PERFORATOR OPERATOR Muscle atrophy of lower extremity Neuropathy of right lower extremity Lumbar radiculopathy HEPATITIS C GENOTYPE Routine 06/12/2021 10:49 AM CDT Viral hepatitis C carrier (CMS/HCC) (HCC) from Last 3 Months or Most Recently Relevant to Health Maintenance Results * XR Spine Lumbar 2 or 3 Views (11/16/2024 9:30 AM TYPESETTER PERFORATOR OPERATOR) Anatomical Region Laterality Modality Spine N/A Computed Radiogr aphy 11/16/2024 9:37 AM TYPESETTER PERFORATOR OPERATOR Impressions 11/16/2024 9:37 AM TYPESETTER PERFORATOR OPERATOR Unchanged moderate lower lumbar degenerative disc changes and facet arthropathy. Electronically signed by: Brandon Rolle D.O. Narrative 11/16/2024 9:37 AM TYPESETTER PERFORATOR OPERATOR EXAMINATION: XR SPINE LUMBAR 2 OR 3 VIEWS HISTORY: back pain COMPARISON: Radiographs 09/12/2024, CT 11/02/2024 FINDINGS: Unchanged grade 1 L4 and L5 anterolisthesis. Unchanged 4 mm L2 on L3 retrolisthesis. No dynamic instability. Normal vertebral body heights. Moderate degenerative disc changes in the lower lumbar spine, worst at L4-S1. Moderate lower lumbar facet arthropathy. Minimal vascular calcifications. Procedure Note Brandon Rolle DO - 11/16/2024 EXAMINATION: XR SPINE LUMBAR [...] lumbar spine without contrast (11/02/2024 10:53 AM TYPESETTER PERFORATOR OPERATOR) Anatomical Region Laterality Modality Spine N/A Computed Tomogra phy 11/02/2024 11:1 0 AM TYPESETTER PERFORATOR OPERATOR Impressions 11/02/2024 11:18 AM TYPESETTER PERFORATOR OPERATOR Advanced multilevel degenerative disc and joint disease most pronounced in the lower lumbar spine as detailed above. Dictated by: Elizabeth Larkin MD The radiology attending physician has personally reviewed this study, and had reviewed and/or edited this written report and agrees with it. Electronically signed by: Shon Ellison M.D. Narrative 11/02/2024 11:18 AM TYPESETTER PERFORATOR OPERATOR EXAMINATION: CT of the lumbar spine without [...] sult * EMG/NCV - (10/29/2024 9:00 AM TYPESETTER PERFORATOR OPERATOR) Anatomical Region Laterality Modality Other Kyaw Ames MD NEUROLOGY ORDERABLES Final Result * Hepatitis C genotype (06/12/2021 10:49 AM CDT) HCV genotype Undetected Undetected CAROLINE Jacobson ARJUN (SALUDA) Comment: Assay failed to detect HCV RNA. This assay is not intended for HCV RNA detection purposes. ADDITIONAL INFORMATION This test was performed using the [employer]ios RealTime HCV Genotype II assay ([employer] [place], [place]). Test Performed by: [place] [address] [employer]ter: Jas Wang M.D. Ph.D.; CLIA# [id number] Blood specimen (specimen) 06/12/2021 10:49 AM CDT 06/12/2021 1:27 PM CDT us Amrik Aguilar MD LAB MICROBIOLOGY - GENERAL OR DERABLES Final Result AJIT DÍAZ (SALUDA) [address] [facility] [place] [address] from Last 3 Months or Most Recently Relevant to Health Maintenance Insurance MEDICARE FOR LIFE [facility] MEDICARE FOR LIFE Advance Directives For more information, please contact: [phone] * Full Code (Latest Code Status on File) Date Activated Date Inactivated Comments 09/12/2019 10:50 AM 09/13/2019 3:03 PM * Full Code Date Activated Date Inactivated Comments 07/04/2018 11:29 AM 07/05/2018 2:21 PM Care Teams Income Tax Consultant Relationship Specialty Start Date End Date Rebecca Joshua MD PCP - General Family Medicine 08/30/18 Rebecca Joshua MD 08/30/18
--- OUTSIDE RECORDS SUMMARY | 2024-12-21 06:53 | XMS_ITS | Encounter Summary ---
Author Organization [facility] Address [address] [place] [address] Care Team Providers Care Shake Out Worker Name Role Phone Rebecca Joshua MD Primary Care Provider [phone] Rebecca Joshua MD Unavailable [phone] Encounter Details Date Type Department Care Team (Late st Contact Info) Description 09/13/2019 Documentation [facility] Case Management [address] [place] [address] Mariela Werner RN Social History Tobacco Use Types Packs/Day Years Used Date Smoking Tobacco: Never Smokeless Tobacco: Never Alcohol Use Standard Drinks/Week Comments Yes 0 (1 standard drink = 0.6 oz pur e alcohol) SOCIAL Sex and Gender Information Value Date Recorded Sex Assigned at Not on file Legal Sex Male 2:32 AM PIPE INSPECTOR Gender Identity Male 09/15/2023 8:15 PM PIPE INSPECTOR Sexual Orientation Straight 01/10/2019 4: 54 PM PIPE INSPECTOR Occupation Industry Job Start Date Job End Date 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
--- OUTSIDE RECORDS SUMMARY | 2024-12-21 06:53 | XMS_ITS | Encounter Summary ---
Author Organization [facility] Healthcare Address [address] [place] [address] Care Team Providers Care Unit Manager Name Role Phone Rebecca Joshua MD Primary Care Provider [phone] Rebecca Joshua MD Primary Care Provider [phone] Rebecca Joshua MD Unavailable [phone] Encounter Details Date Type Department Care Team (Late st Contact Info) Description 07/06/2018 Documentation [facility] Case Management [address] [place] [address] Mariela Werner RN Social History Tobacco Use Types Packs/Day Years Used Date Smoking Tobacco: Never Smokeless Tobacco: Never Alcohol Use Standard Drinks/Week Comments Yes 2 (1 standard drink = 0.6 oz pur e alcohol) Sex and Gender Information Value Date Recorded Sex Assigned at Not on file Legal Sex Male 2:32 AM MOTORCYCLE REPAIR SHOP SUPERVISOR Gender Identity Male 09/15/2023 8:15 PM MOTORCYCLE REPAIR SHOP SUPERVISOR Sexual Orientation Straight 01/10/2019 4: 54 PM MOTORCYCLE REPAIR SHOP SUPERVISOR Occupation Industry Job Start Date Job End Date 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
[2024-12-21 07:41] LABS: Mean Platelet Volume 11.1 fl (7.4-10.4); Platelet Count Result 170 k/mm3 (150-375)
[2024-12-21 08:16] LABS: Prothrombin Time 13.1 Seconds (11.1-14.7)
== END 2024-12-21 12:11 | disposition home or self-care (01) ==
PROVIDERS: Radiology Diagnostic Radiology; PCP Family Medicine; Visit Provider Radiology Diagnostic Radiology
DX: M47.816 Spondylosis without myelopathy or radiculopathy, lumbar region (principal); M48.061 Spinal stenosis, lumbar region without neurogenic claudication
CPT/HCPCS: 36415; 62304; 72132; 85049; 85610; Q9965; Q9967